=== PATIENT | female | born 2000 | race Caucasian/White ===

== ENCOUNTER 2024-04-15 17:30 | Emergency (ER) | payer BC, SELFPAY ==
[2024-04-15 18:28] VITALS: BP 143/71; PULSE 77; RESP 18; TEMP 36.8; O2SAT 99; BMI 34.6
--- NOTE | 2024-04-15 18:29 | ED_ITS ---
HPI - Headache General Chief Complaint: General Medical Stated Complaint: vomiting, can't keep anything down Related Data Allergies Allergy/AdvReac Type Severity Reaction Status Date / Time amoxicillin Allergy Hives Verified 04/15/24 18:30 shellfish derived [shellfish] Allergy Anaphylaxis Verified 04/15/24 18:30 [facility] Social History Social History Advance Directives: No Advance Directives Information Provided: No Do you have a plan to hurt others: No Plan Physical Exam 2 Vital Signs: Vital Signs: Last Vital Signs Temp 98.2 F 04/15/24 18:28 Pulse 77 04/15/24 18:28 Resp 18 04/15/24 18:28 BP 143/71 H 04/15/24 18:28 Pulse Ox 99 04/15/24 18:28 O2 Del Method Room Air 04/15/24 18:28 BMI result Body Mass Index 34.6 Course Course Course Narrative: This is an RME: Additional HPI, ROS, PE not included below will be deferred to primary provider. RME assessment and note performed by: Tawny Chau PA-C This is a 64-jeps-afc-female who presents to the ER with complaints of headache, nausea, vomiting since this am. Went to an urgent care and was given Zofran 8 mg. Plan: Labs, UA, further ER eval needed Reevaluation(s) Reevaluation #1: Patient left without completing treatment. Medical Decision Making Lab Data 04/15/24 19:09 04/15/24 19:09 Labs: Lab Results 04/15/24 Range/Units 19:09 WBC 7.7 (4.8-10.8) X10*3/uL RBC 4.55 (4.20-5.50) X10*6/uL Hgb 13.6 (12.0-16.0) g/dl Hct 40.5 (37.0-47.0) % MCV 89.0 (80.0-98.0) fL MCH 29.9 (27.0-33.0) pg MCHC 33.6 (31.0-35.0) g/dl RDW 11.9 (11.0-16.0) % Plt Count 303 (160-400) X10*3/uL MPV 8.6 L (9.4-12.3) fL Immature Gran % (Auto) 0.3 (0.0-0.4) % Neut % (Auto) 78.8 H (45-73) % Lymph % (Auto) 15.9 L (20-40) % [place] % (Auto) 4.3 (2-11) % Eos % (Auto) 0.3 (0-4) % Baso % (Auto) 0.4 (0-2) % Lymph # (Auto) 1.2 (1.2-4.9) X10*3/uL [place] # (Auto) 0.3 (0.1-1.2) X10*3/uL Eos # (Auto) 0.0 (0.0-0.4) X10*3/uL Baso # (Auto) 0.0 (0.0-0.2) X10*3/uL Abs Immat Gran (auto) 0.02 (0.00-0.03) X10*3/uL Absolute Neuts (auto) 6.1 (2.0-8.3) x10*3/uL Absolute Nucleated RBC 0.000 (0.0-0.012) X10*3/uL Nucleated RBC % (auto) 0.0 (0.0-0.2) /100WBC Sodium 139 (135-145) mmol/L Potassium 3.9 (3.3-5.1) mmol/L Chloride 104 (96-108) mmol/L Carbon Dioxide 24 (22-29) mmol/L Anion Gap 15 (12-20) BUN 9 (9-16) mg/dL Creatinine 0.60 (0.5-1.4) mg/dL Estim Creat Clear Calc 151.2 Estimated GFR > 60 Random Glucose 94 (60-115) mg/dL Calcium 8.9 (8.4-10.2) mg/dL Magnesium 2.1 (1.6-2.6) mg/dL Total Bilirubin 0.4 (0.0-1.0) mg/dL Direct Bilirubin 0.1 (0.0-0.5) mg/dL AST 32 H (5-31) U/L ALT 20 (0-31) U/L Alkaline Phosphatase 52 (39-117) U/L Total Protein 8.1 H (6.5-8.0) g/dL Albumin 4.6 (3.5-5.0) g/dL Lipase 17 (8-78) U/L Beta HCG, Quant < 2 mIU/mL Influenza Type A (PCR) NEGATIVE (Negative) Influenza Type B (PCR) NEGATIVE (Negative) RSV RNA Qual (PCR) NEGATIVE (Negative) SARS-CoV-2 RNA (RT-PCR) NEGATIVE (Negative) Discharge Plan Discharge Clinical Impression: Vomiting Patient Disposition: Left W/O Completing Treatment Discharge Date/Time: 04/16/24 00:29
[2024-04-15 19:16] LABS: MANUAL DIFF FLAG NO
[2024-04-15 19:17] LABS: Basophils Percent Auto 0.4 % (0-2); Eosinophils Percent Auto 0.3 % (0-4); Hematocrit 40.5 % (37.0-47.0); Hemoglobin 13.6 g/dl (12.0-16.0); Imm Gran Abs Auto 0.02 X10*3/uL (0.00-0.03); Imm Gran Pct Auto 0.3 % (0.0-0.4); Lymphocytes Absolute Auto 1.2 X10*3/uL (1.2-4.9); Lymphocytes Percent Auto 15.9 % (20-40); Mean Corpuscular HGB Conc 33.6 g/dl (31.0-35.0); Mean Corpuscular Hemoglobin 29.9 pg (27.0-33.0); Mean Platelet Volume 8.6 fL (9.4-12.3); Monocytes Absolute Auto 0.3 X10*3/uL (0.1-1.2); Monocytes Percent Auto 4.3 % (2-11); Neutrophils Absolute Auto 6.1 x10*3/uL (2.0-8.3); Neutrophils Percent Auto 78.8 % (45-73); Platelet Count 303 X10*3/uL (160-400); Red Blood Count 4.55 X10*6/uL (4.20-5.50); Red Cell Distribution Width 11.9 % (11.0-16.0); White Blood Count 7.7 X10*3/uL (4.8-10.8)
[2024-04-15 19:44] LABS: Alanine Aminotransferase 20 U/L (0-31); Albumin Level 4.6 g/dL (3.5-5.0); Alkaline Phosphatase 52 U/L (39-117); Anion Gap 15 (12-20); Aspartate Amino Transferase 32 U/L (5-31); Bilirubin Direct 0.1 mg/dL (0.0-0.5); Bilirubin Total 0.4 mg/dL (0.0-1.0); Blood Urea Nitrogen 9 mg/dL (9-16); Calcium 8.9 mg/dL (8.4-10.2); Carbon Dioxide 24 mmol/L (22-29); Chloride 104 mmol/L (96-108); Creatinine Clr Calc Pharmacy 151.2; Estimated Glomerular Filt Rate > 60; Glucose Random 94 mg/dL (60-115); Lipase 17 U/L (8-78); Magnesium 2.1 mg/dL (1.6-2.6); Potassium 3.9 mmol/L (3.3-5.1); Sodium 139 mmol/L (135-145); Total Protein 8.1 g/dL (6.5-8.0)
[2024-04-15 19:46] LABS: HCG Quantitative < 2 mIU/mL
[2024-04-15 20:01] LABS: Influenza A PCR NEGATIVE (Negative); Influenza B PCR NEGATIVE (Negative); Resp Syncy Virus RNA Qual PCR NEGATIVE (Negative); SARS COV2 PCR INHOUSE NEGATIVE (Negative)
--- NOTE | 2024-04-15 23:58 | PC.NURSE ---
Pt called in WR with no answer
== END 2024-04-16 00:29 | disposition left against medical advice (07) ==
LOC: HO.ED 04-16 00:17
PROVIDERS: Physician Assistant Medical; Emergency Provider Emergency Medicine
DX: R11.2 Nausea with vomiting, unspecified (principal); R51.9 Headache, unspecified; R10.2 Pelvic and perineal pain; Z03.818 Encounter for observation for suspected exposure to other biological agents ruled out; Z79.899 Other long term (current) drug therapy
CPT/HCPCS: 0241U; 36415; 80048; 80076; 83690; 83735; 84702; 85025; 99281; 99283

== ENCOUNTER 2024-11-20 11:02 | Outpatient (AMB) | payer OTHER, SELFPAY ==
[2024-11-20 11:07] VITALS: BP 140/74; PULSE 98; RESP 18; TEMP 36.2; O2SAT 98; BMI 39.1
--- NOTE | 2024-11-20 11:07 | A.OFFPC_ITS ---
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 Accompanied by: Self / Same As Patient Allergies amoxicillin Allergy (Verified 11/20/24 11:29) Hives shellfish derived (shellfish) Allergy (Verified 11/20/24 11:29) Anaphylaxis Medication List - Last Reconciled 11/20/24 by LYNETTE Ngo No Known Home Meds Tobacco use date assessed: 11/20/24 Dental Screening Dental Screen Date: 11/20/24 Did you have a dental visit in the last 12 months?: Yes Did you have a dental problem in the last 6 months where you did not have access to dental care?: No Was dental information given to patient?: Patient has dentist HPI PYTHON DEVELOPER Establish Care, reschedule HPI Details [facility] Last visit: Last January PE: about a year Specialist: [facility]YN: Past medical history: Asthma, adhd, anxiety, ocd that past, , due in January, Medications: Family HX: mother asthma, mother endometriosis, aunt pcos, sister thyroid issues, Problem: The patient is a 23-year-old female presenting to [facility]. Patient reports that she is currently in his due to give in January. She has a history of asthma, managed with an inhaler, and reports no recent exacerbations. Her ADHD was previously managed with Concerta, but she now uses coping strategies instead of medication. The patient has anxiety, previously managed with situational Ativan, which she no longer uses. She is , due February 16, and follows a holistic care plan with her market superintendent, including glucose testing. Her past medical history includes resolved increased prolactin levels that resolved after discontinuing Concerta. She was worried that this could have affected her fertility She recently had COVID-19, with resolved ear erythema noted during an urgent care visit. ON LICENSE OF [facility] Medical History (Updated 11/20/24 @ 23:40 by LYNETTE Ngo) Anxiety OCD (obsessive compulsive disorder) ADHD Asthma Family History (Updated 11/20/24 @ 23:46 by LYNETTE Ngo) Mother Endometriosis Sister Thyroid disease Maternal Aunt Endometriosis Other Anxiety PCOS (polycystic ovarian syndrome) Social History Household Members: Spouse Housing: House Alcohol intake: never Patient Tobacco Use Status: Never used Tobacco e-Cigarette/Vaping Use: Never Used service: No Current occupational status: employed Current occupation: RESIDENTIAL BUILDER Current occupational exposures/hazards: No Cognitive needs: No Hearing needs: No Vision needs: Yes Questionnaire PHQ-9 Over the last 2 weeks, how often have you been bothered by any of the following problems? 1. Little interest or pleasure in doing things: not at all 2. Feeling down, depressed, or hopeless: not at all 3. Trouble falling or staying asleep, or sleeping too much: not at all 4. Feeling tired or having little energy: not at all 5. Poor appetite or overeating: not at all 6. Feeling bad about yourself - or that you are a failure or have let yourself or your family down: not at all 7. Trouble concentrating on things, such as reading the newspaper or watching television: not at all 8. Moving or speaking so slowly that other people could have noticed. Or the opposite - being so fidgety or restless that you have been moving around a lot more than usual: not at all 9. Thoughts that you would be better off or of hurting yourself in some way: not at all Total score: 0 Source: Developed by Drs. Duglas Verdugo, Rosalie Way, Aramis Rubio and colleagues, with an educational mike from [employer]. Thrive Questionnaire Date Thrive assessed: 11/20/24 I am a: Patient What is your living situation today?: I have a steady place to live Within the past 12 months, did the food you bought not last and you didn't have the money to get more?: Never true Within the past 12 months, did you worry whether your food would run out before you got money to buy more?: Never true Do you have trouble paying for medicines?: No Do you have trouble getting transportation to medical appointments?: No Do you have trouble paying your heating and electricity bill?: No Do you have trouble taking care of your child, family member or friend?: No Do you have trouble with day-to-day activities such as bathing, preparing meals, shopping, managing finances, etc.?: No Are you currently unemployed and looking for a job?: No Are you interested in more education?: No Please select the resources that you would like help with: None Currently or been in a relationship where the following occur: I choose not to answer THRIVE Score: 0 AUDIT C Alcohol Use Questionnaire (AUDIT-C) 1. How often do you have a drink containing alcohol?: Never Total Score: 0 ROBY-7 AMB Questionnaire ROBY-7 Date ROBY - 7 assessed: 11/20/24 Feeling nervous, anxious, or on edge: 0 = Not at all Not being able to stop or control worryin = Not at all Worrying too much about different things: 0 = Not at all Trouble relaxin = Not at all Being so restless that it is hard to sit still: 0 = Not at all Becoming easily annoyed or irritable: 0 = Not at all Feeling afraid as if something awful might happen: 0 = Not at all Total ROBY-7 score (0-4 normal; 5-9 mild; 10-14 moderate; 15-21 severe): 0 Source: Developed by Drs. Duglas Verdugo, Rosalie Way, Aramis Rubio and colleagues, with an educational mike from [employer]. Review of Systems Const Denies headache(s) Eyes Denies loss of vision ENT Denies vertigo, Denies dizziness, Denies headache(s) and Denies sore throat Card Denies chest pain, Denies leg edema and Denies lightheadedness Resp Denies cough, Denies hemoptysis and Denies wheezing GI Denies abdominal pain, Denies melena, Denies constipation, Denies diarrhea and Denies vomiting Denies urinary frequency, Denies dysuria and Denies urinary urgency Musc Denies arthralgias, Denies joint swelling, Denies numbness and Denies tingling Neuro Denies Abnormal speech present, Denies behavioral changes, Denies vertigo, Denies dizziness, Denies headache(s), Denies loss of vision, Denies memory loss, Denies numbness and Denies tingling Psych Reports anxiety, Denies behavioral changes, Reports depression, Denies memory loss and Denies panic attacks Anthony/Lymph Denies easy bleeding and Denies easy bruising Aller/Immun Denies wheezing Physical exam (Primary Care) Vital Signs: Last Vital Signs Temp 97.1 F 11/20/24 11:07 Pulse 98 11/20/24 11:07 Resp 18 11/20/24 11:07 BP 140/74 H 11/20/24 11:07 Pulse Ox 98 11/20/24 11:07 Oxygen Delivery Method Room Air 11/20/24 11:07 BMI result Body Mass Index 39.1 Tobacco/Smoking Status: Tobacco use Status Tobacco use date assessed 11/20/24 11/20/24 11:17 Patient Tobacco Use Status Never used Tobacco 11/20/24 11:17 e-Cigarette/Vaping Use Never Used 11/20/24 11:17 PHQ-9: PHQ-9 Score PHQ-9: Total score 0 11/20/24 11:30 Thrive Assessment: Date of Thrive Assessment Date Thrive assessed 11/20/24 11/20/24 11:17 Currently or been in a relationship where the following occur: I choose not to answer Const General: healthy appearing, no acute distress, alert and awake Nutritional Appearance: well nourished Orientation/consciousness: oriented to person, oriented to place and oriented to time HENMT Ears: TM's normal bilaterally General nose exam: Normal nasal mucous membranes and turbinates present Eyes Conjunctivae: conjunctivae normal Sclerae: sclerae normal Pupils: Equal, round and reactive pupils present Neck Neck: Yes no lymphadenopathy and Yes no JVD Thyroid: Thyroid normal Carotids: no bruits Resp Effort & Inspection: normal respiratory effort and not tachypneic Auscultation: no crackles, no rales, no rhonchi and no wheezes Cardio Rate: regular rate Rhythm: regular rhythm Heart sounds: no murmurs and normal S1 and S2 GI Inspection: Yes other ( abdomen) Palpation (GI): Soft to palpation, nontender, no hepatomegaly and no splenomegaly Auscultation: normal bowel sounds General: Yes no CVA tenderness Back/Spine/Pelvis Back: no CVA tenderness Skin General skin exam: no rashes or lesions noted and dry skin Neuro General: oriented to person, oriented to place and oriented to time Cranial nerves: Yes Equal, round and reactive pupils present Speech: No Abnormal speech present Gait exam (Neuro): Normal gait present Motor exam (neuro): no tremor noted Extrem Right upper extremity: full ROM Left upper extremity: full ROM Right lower extremity: full ROM; no edema Left lower extremity: full ROM; no edema Psych Mental Status: mental status grossly normal Speech and movement: Normal speech and movement present Affect: normal affect Attitude: cooperative Thought process: Normal thought process present Coding Level of Care Code New Pt Level 3 (23867) Diagnoses Anxiety F41.9 17 weeks gestation of Z3A.17 Weeks of gestation: 17 weeks Mild intermittent asthma with acute exacerbation J45.21 Asthma persistence: intermittent Asthma complication type: with acute exacerbation Asthma severity: mild Attention deficit hyperactivity disorder (ADHD), unspecified ADHD type F90.9 Attention deficit-hyperactivity disorder type: unspecified Time Spent (min) 34 Assessment & Plan Assessment & Plan (1) Anxiety: Code(s): F41.9 - Anxiety disorder, unspecified Category: Medical Plan: Encouraged CBT Reports that she learned effective strategies that have been helping and she is no longer on any medications We will continue to monitor (2) : Code(s): Z34.90 - Encounter for supervision of normal , unspecified, unspecified trimester Category: Medical Qualifiers: Weeks of gestation: 17 weeks Qualified Code(s): Z3A.17 - 17 weeks gestation of Plan: The patient is in his due in January. She is under the care of [facility]. She is currently on vitamins and she has a upcoming glucose tolerance test. (3) Asthma: Code(s): J45.909 - Unspecified asthma, uncomplicated Category: Medical Qualifiers: Asthma persistence: intermittent Asthma complication type: with acute exacerbation Asthma severity: mild Qualified Code(s): J45.21 - Mild intermittent asthma with (acute) exacerbation Plan: Lifestyle modifications like smoking cessation. Wear a mask when around irritants, fumes, or particulate matter (e.g., painting, lawn mowing). Increase humidification at home, especially in the winter. Annual flu shots and the pneumonia shot can mitigate exacerbation. Increase fluids if not contraindicated because of heart failure. (4) ADHD: Code(s): F90.9 - Attention-deficit hyperactivity disorder, unspecified type Category: Medical Qualifiers: Attention deficit-hyperactivity disorder type: unspecified Qualified Code(s): F90.9 - Attention-deficit hyperactivity disorder, unspecified type Plan: Reports that this was more bothersome while she was in school. 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 Plan Plan Patient was informed and verbally consented to the use of an ambient scribe for clinic note documentation during this visit. 1. Asthma The patient's asthma is managed with an inhaler, with no recent exacerbations reported. No changes in management were discussed. 2. Attention Deficit Hyperactivity Disorder (Adhd) The patient manages her ADHD symptoms through coping strategies developed over time, without medication. No further interventions were discussed. 3. Anxiety The patient has a history of anxiety, previously managed with situational Ativan, which she no longer uses. No changes in management were discussed. 4. The patient is , due February 16, and follows a holistic care plan with her market superintendent, including glucose testing. No additional interventions were discussed. Orders: Orders Complete Blood Count Auto Diff 4 Months Z00.00 - Encounter for general adult medical examination without abnormal findings Vitamin D 25-OH Total 4 Months Z00.00 - Encounter for general adult medical examination without abnormal findings Comprehensive [place]. Panel Fast 4 Months Z00.00 - Encounter for general adult medical examination without abnormal findings Lipid Panel 4 Months Z00.00 - Encounter for general adult medical examination without abnormal findings UA CC w/rflx Micro + Cult 4 Months Z00.00 - Encounter for general adult medical examination without abnormal findings TSH reflex Free T4 4 Months Z00.00 - Encounter for general adult medical examination without abnormal findings Patient Instructions: Patient to follow up in 4 months for annual physical
--- OUTSIDE RECORDS SUMMARY | 2024-11-20 11:59 | XMS_ITS | Encounter Summary ---
Author Organization [facility] Address [address] [place] [address] Phone Care Team Providers Care Inspector Technician Name Role Phone Liang Rodríguez NP Unavailable Pamela Avila MD Unavailable [phone] Tony Loomis MD Unavailable [phone] Duglas Marino MD Unavailable [phone] Reason for Visit * Reason Onset Date Comments has new PCP 11/15/2024 Encounter Details Date Type Department Care Team (Late st Contact Info) Description 11/15/2024 Telephone [facility] [address] [place] [address] Pamela Avila MD [address] [place] [address] [email or web address] has new PCP Social History Tobacco Use Types Packs/Day Years Used Date Smoking Tobacco: Never Smokeless Tobacco: Never Alcohol Use Standard Drinks/Week Comments Yes 0 (1 standard drink = 0.6 oz pur e alcohol) occasional Education Answer Date Recorded Are you interested in more education? Not on baudilio e 07/22/2022 Are you concerned about learning? Not on file 07/22/2022 No 07/22/2022 No 07/22/2022 Digital Access Answer Date Recorded No 08/19/2022 No 08/19/2022 Reliable internet access at home? Not on file 08/19/2022 Device with a working camera? Not on file Intimate Partner Violence Answer Date R ecorded Denied Basic Needs Not on file 12/26/2022 In the past 12 months have y ou been in a relationship with a person who hurts, threatens, or tries to control you? No 12/26/2022 Worried food would run out Not on file 12/26 In the past 12 months have y ou been in a relationship with a person who hurts, threatens, or tries to control you? No 12/26/2022 Comments No Sex and Gender Information Value Date Recorded Sex Assigned at Female 11/15/2022 10:36 AM EDT Legal Sex Female 4:13 PM EST Gender Identity Female 11/15/2022 10:36 AM EDT Sexual Orientation Straight 11/15/2022 10 :36 AM EDT documented as of this encounter Progress Notes * Mayela Gonzalez - 11/15/2024 9:40 AM EDT Pt called. She has new PCP in [facility] and will no longer be a patient of Dr. Campo. documented in this encounter Plan of Treatment Upcoming Encounters Date Type Department Care Team (Late st Contact Info) Description 11/22/2024 9:40 AM EDT Appointment [facility] [place], OB Ultrasound [address] [place] [address] Shani Terry, [address] [address] [email or web address] documented as of this encounter Visit Diagnoses Not on filedocumented in this encounter Additional Health Concerns Assessment Noted Time PHQ-2 Depression Total Score: 0 07/07/19 24 9:53 AM EDT documented as of this encounter Care Teams Inspector Technician Relationship Specialty Start Date End Date Liang Rodríguez NP [address] [place] [address] Historical LMR Provider 06/07/18 Pamela Avila MD [address] [place] [address]. [address] [place] [address] [email or web address] Historical LMR Provider 06/07/18 Tony Loomis MD [address] [place] [id number] [email or web address] Historical LMR Provider 06/07/18 Duglas Marino MD [address] [place] [id number] Historical LMR Provider 06/07/18 documented as of this encounter Additional Source Comments The information contained in this document represents components of the legal health record. It is not the complete legal health record.[facility]
--- OUTSIDE RECORDS SUMMARY | 2024-11-20 11:59 | XMS_ITS | Clinical Summary ---
Author Organization [facility] Address [address] [place] [id number] Phone Care Team Providers Care Behavioral Assistant Name Role Phone Liang Rodríguez NP Unavailable Pamela Avila MD Unavailable [phone] Tony Loomis MD Unavailable [phone] Duglas Marino MD Unavailable [phone] Allergies Active Allergy Reactions Criticality Noted Date Comments Amoxicillin Low 08/05/2016 Clams High 01/20/2017 Scallops High 01/20/2017 Shellfish Containing Products High 2016 Medications EPINEPHrine 0.3 mg/0.3 mL auto-injector INJECT 0.3 ML (0.3 MG TOTAL) INTRAMUSCULARLY ONCE NEEDED FOR ANAPHYLAXIS 2 each 1 01/14/20 23 Active triamcinolone acetonide 0.025 % ointment APPLY TOPICALLY 2 (TWO) TIMES A DAY. TO DERMATITIS 60 g 1 05/25/19 24 Active albuterol 90 mcg/actuation inhalerIndication s:Allergic rhinitis due to pollen Inhale 2 puffs into the lungs every 4 (four) hours as needed. With SPACER always 54 g 06/28/19 24 Active cloNIDine HCL (CATAPRES) 0.1 MG tablet TAKE 1 TABLET (0.1 MG TOTAL) BY MOUTH TWICE A DAY NEEDED 180 tablet 07/31/19 24 Active methylphenidate (CONCERTA) 27 MG ER tabletIndications :Attention-defici t hyperactivity disorder, predominantly inattentive type Take 1 tablet (27 mg total) by mouth every morning. 90 tablet 03/22/20 24 Active Active Problems Problem Noted Date Diagnosed Date Screening for tuberculosis 07/07/2023 Assessment & Plan (07/08/2023 10:17 AM EDT): PPD planted today to fulfill requirements for HOLISTIC PULSER course. Will have this read at a local urgent care or at work since pt. Living in [facility]. Knows to have PPD read in 48-72 hrs. Should send results to our office as well to document. Screen for STD (sexually transmitted disease) Assessment & Plan (07/24/2021 7:07 AM EDT): Refer Encounter for general adult medical examination without abnormal findings. Assessment & Plan (08/06/2020 11:52 AM EDT): HIV, Hep C ordered per care gaps, GC/Chlam testing done on pap specimen Encounter for gynecological examination without abnormal finding 08/06/2020 Assessment & Plan (08/06/2020 11:51 AM EDT): First pap done today Encounter for preventive care 11/13/2017 Assessment & Plan (07/08/2023 10:18 AM EDT): 22 yo F presenting for annual PE Reviewed healthy habits: regular meals, good variety, good hydration, regular exercise, sleep habits, hand hygeine, healthy relationships, safe sex, safe driving/seatbelts, substance use SBE reviewed Reviewed recommendation for COVID booster - should update before HOLISTIC PULSER course. Pt. States it is required and she will be getting this at a local pharmacy Pap due this year - will do at scheduled visit in December Follow up for PE/med check 01/01/24 Assessment & Plan (12/26/2022 2:02 PM EDT): 22 yo F presenting for annual PE Reviewed healthy habits: regular meals, good variety, good hydration, regular exercise, sleep habits, hand hygeine, healthy relationships, safe sex, safe driving/seatbelts, substance use SBE reviewed Flu vaccine given today, encouraged covid booster this fall, deferred PCV 20 Declined Chlamydia screening Pap due 2023 Follow up 1 year for annual PE, 6 months for med check Assessment & Plan (07/24/2021 2:34 PM EDT): Pap screening: Her Pap is due in 2023. Ophthalmology screening: She wears glasses and contacts. She sees an eye doctor regularly. Continue regular eye checkups. Dental screening: She does not follow-up with the dentist regularly. Recommended regular dental follow-up. STD screening: Due. Ordered STD screening for gonorrhea, Chlamydia, and Trichomonas vaginalis, pt agrees. Diet and Exercise : She is working on weight loss and has lost 8 lb. She is eating healthy. She drinks Celsius in the morning with Lucila bar. She has a sandwich for lunch. She has pasta/rice/ salad for dinner. If she is hungry in the middle of day she will have a lady boss lean shake. She is trying to drink an adequate amount of water. She usually has 1-2 water bottles/day. She is very picky with her water. States she cannot drink tap water. She has brought a water pitcher at home. She exercises at home for an hour daily. She does a HIIT workout by watching a video on YouTube ([email or web address]). She plans to increase the intensity of her workout and also plans to go back to the gym. She also remains active at work. Continue healthy diet and regular physical activity. Recreational activities: She likes to go biking, and hiking. Immunization: Due for pneumococcal vaccine. She used to get pneumonia every year in middle school and high school. She did not get pneumonia last year. She declined the pneumococcal vaccine today. Sleep health: She sleeps well. Elimination: She denies any issues with constipation or diarrhea. PMFSH reviewed. 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 She is waiting to take her HOLISTIC PULSER test. She has alcohol 3 times/week after work. She uses edibles occasionally once a month. She denies vaping or smoking cigarettes. She has been in a relationship with her boyfriend for a year. Has a safe relationship. She is planning to get . Assessment & Plan (08/06/2020 11:51 AM EDT): 19 yo F presents for annual PE Reviewed healthy habits: regular meals, good variety, good hydration, regular exercise, sleep habits, hand hygeine, healthy relationships, safe sex, safe driving/seatbelts, substance use SBE reviewed Pneumovax given today Bloodwork ordered for Fasting lipids, HIV, Hep C, TSH, testosterone, prolactin Pap done today with GC/Chlam testing Follow up 1 year for annual PE Assessment & Plan (02/08/2019 4:33 PM EST): 18 yo F in for annual PE Reviewed healthy habits: regular meals, good variety, good hydration, regular exercise, sleep habits, hand hygeine, healthy relationships, safe sex, safe driving/seatbelts, substance use SBE reviewed Flu shot given today Urine obtained for GC/Chlam Follow up 1 year for annual PE Eczema 11/13/2017 Assessment & Plan (06/11/2020 11:32 AM EDT): Requesting refill of trimacinolone today as this is helpful with winter eczema flares - rx sent. Contraception management 02/20/2017 Assessment & Plan (07/08/2023 10:18 AM EDT): Doing well on current OCP. Periods regular and manageable. No condom use. . Assessment & Plan (12/26/2022 2:01 PM EDT): Periods well managed with current OCP, does get back cramps, but manages well with ibuprofen Assessment & Plan (11/15/2022 1:30 PM EDT): Doing well on current OCP - taking consistently with no side effects in September! Assessment & Plan (07/24/2021 7:08 AM EDT): Currently, on norethindrone- ethinyl estradiol control pill. She has no concerns and has regular periods. Continue current medication. Assessment & Plan (02/10/2021 10:05 AM EST): Currently, on control pills, and having regular periods. Recommended continuing current management. Assessment & Plan (02/08/2019 4:32 PM EST): Pt. Interested in IUD - reviewed good to consider as pt. Has hx of migraines ? Aura and has been on combined OCP Pt. To go up to W to schedule consult after this visit Allergic rhinitis due to pollen 11/22/2016 Overview (11/21/2023): 11/22/23: OV w KL, I removed tree pollen, insects, cat dander and mite extract from the Allergy list in this chart which is meant for noting ER & hospital medical care relevant allergies - other allergy issues are to be noted here in the Problem List as this is here & I am also noting the cat, mite, insect in the Overview of this problem for clarification. Assessment & Plan (11/21/2023 8:39 PM EDT): I removed tree pollen, insects, cat dander and mite extract from the Allergy list in this chart which is meant for noting ER & hospital medical care relevant allergies - other allergy issues are to be noted here in the Problem List as this is here & I am also noting the cat, mite, insect in the Overview of this problem for clarification. Assessment & Plan (10/01/2018 2:16 PM EDT): Skin testing demonstrates sensitivity to dust mite, cat, and pollen. Dust mite environmental controls are in place. She uses loratadine as needed. I have previously demonstrated the correct technique for Flonase. 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 Skin testing to crustaceans and mollusks demonstrate positive responses to shrimp, crab, lobster, clam, and scallop. The patient does carry auto injectable epinephrine. There have been no recent pertinent exposures. Mild intermittent asthma without complication Assessment & Plan (07/07/2023 2:34 PM EDT): States rarely needing inhaler, just using albuterol as needed Assessment & Plan (12/26/2022 2:00 PM EDT): Asthma well managed, has active albuterol inhaler, no concerns at this time. PCV 23 in 2020, will defer PCV 20 for now Assessment & Plan (11/15/2022 1:27 PM EDT): States asthma well managed. Is noticing symptoms more at night or with temp changes, but states not needing albuterol daily. Will check peak flows at PE and consider maintenance med if indicated. Assessment & Plan (07/24/2021 7:05 AM EDT): Her symptoms are well managed at this time. She has an albuterol to use as needed. Well managed. Continue current management. Assessment & Plan (02/10/2021 10:04 AM EST): Has a h/o asthma. States using the albuterol inhaler once or twice a week. Recommended continuing current management. Advised to notify if she is using the inhaler more frequently. Assessment & Plan (10/01/2018 2:17 PM EDT): Spirometry today was normal. Patient is using pro-air 2-3 times a week. The patient knows that if her Pro Air use increases, we will likely need to start maintenance medications. Situational anxiety 11/11/2016 Assessment & Plan (11/22/2023 1:21 PM EDT): Ok to use clonidine 0.1mg am and pm as often seen. Assessment & Plan (07/08/2023 10:15 AM EDT): Has struggled with anxiety in the past, currently not on medication. States anxiety is off and on, either there or no problem at all. is great at helping her manage her anxiety and does have good coping skills. Does not want to go back on daily med - did review benefit of this to help prevent spikes in panic altogether. Reviewed options for safe alternatives for prn meds Rx clonidine 0.1mg PO BID prn anxiety/panic. Reviewed side effects If using more than a few times weekly should consider daily med Pt. To message with any concerns. Did encourage follow up med check in 2-3 months for recheck Assessment & Plan (07/24/2021 7:05 AM EDT): She has h/o anxiety and situational depression. Today, she reports having some stress with work and school but feels like she is managing her mental health well for most part. Her ROBY 2 score is 1 and PHQ 2 score is 0. Well managed. Continue current management. Advised to let us know if symptoms are bothersome. Assessment & Plan (02/10/2021 10:05 AM EST): Patient having anxiety. Currently, on methylphenidate HCL 27 mg, and Ritalin 5 mg as needed. States not taking Luvox 50 mg, as she had side effects with it. However, she is feeling better with her anxiety and OCD. Has normal sleep and appetite. Recommended continuing current management. Assessment & Plan (08/06/2020 11:40 AM EDT): Pt. Currently off luvox and doing well, no concerns for anxiety/depression at this time. No current therapsit. Assessment & Plan (06/11/2020 11:31 AM EDT): 19 yo F presents for genesite testing Pt. With hx of Anxiety/OCD tendencies, failed on sertraline with new onset SI. Switched to luvox and has been doing well on 50mg daily - prescribed by Dr. Isaac at [facility] Reviewed if doing well on meds no need to change even if contradicted by genesite results. Reviewed financial obligations possible for testing - states mom and dad aware and feel this would be good for pt. To have moving forward. Cheek swab performed - will contact pt. With results and mail a copy home to her as she has meds prescribed by psychiatry - will want to share results with her psychiatrist as well PE scheduled in June. Assessment & Plan (09/10/2019 9:26 AM EDT): 18 yo F presents for telemed visit to go over requirements for nursing school UTD with vaccines, does need 2 step PPD, school prefers this over quantiferon gold test. Does need to go for Hep B titer - knows to go anytime - orders in the system. Reviewed pre-registration requirement. Doing well with current dose of luvox - denies concerns for anxiety at this time. Sees Dr. Isaac at [facility] for meds. PE due in January - scheduled Assessment & Plan (02/08/2019 4:31 PM EST): Pt. Doing very well on fluvoxamine 50mg - seeing psychiatrist Dr. Isaac at [facility] for Rx, also seeing therapist there as well No concerns for disturbing thoughts at this time. Assessment & Plan (11/19/2018 11:39 AM EDT): 17 yo F in with her mom and sister. Started sertraline on 10/29/18 for anxiety and ruminating behaviors/OCD type behavior. Over the past week while taking med started experiencing increasing depressive thoughts and engaged in superficial cutting. Did not feel safe to be alone, had family with her at all times. After discussion with [facility] safety eval, this office and family stopped med over weekend with depressive/harmful thoughts resolving, now feeling anxious again. Long discussion with pt. And family regarding this reaction - not normal at all, good she stopped med. Going forward pt. Still interested in trying medication but is also very open to therapy - is on urgent list at [facility] after emergency eval, waiting to hear back. Discussed trying fluvoxamine as this is very helpful for OCD type symptoms with anxiety, however is an SSRI so is in same class as sertraline which caused increased depression. Can also try a different class like SNRI - long discussion regarding this with pros/cons. Did discuss SE of each med. Reviewed option for Genesite and cost. Declined at this time but if still having issues with meds after next trial should do this - pt. And family agree. Pt. Ultimately decided to try Fluvoxamine at this time - will start very low with 50mg PO QD - reviewed may increase at some point to BID if behaviors not adequately controlled Pt. To call at any time with any concerns for thoughts/side effects/behaviors Go to ER with any suicidal thoughts Follow up 1 month for med check 45 minutes spent with pt. With > 50% of time spent on education and counseling Assessment & Plan (10/29/2018 11:33 AM EDT): 17 yo F in with concern for 1-2 months of increasing anxiety, feels she ruminates over tasks, always worried, is affecting sleep and her appetite. Interested in medication at this time but open to therapy in the future if needed Is currently on stimulants for ADHD - does not feel these are contributing to her anxiety Rx sertraline 50mg PO QD - pt. To take 25mg (half tab) daily for 4-5 days then increase dose to 50mg, encouraged to take at bedtime Reviewed side effects, 4-6 weeks for full therapeutic effect Follow up 4 weeks for med check, call any time with questions/concerns Over 25 minutes spent face to face with the patient today; over 20 minutes in counseling on above and below issues. Attention-deficit hyperactiv ity disorder, predominantly inattentive type 11/11/2016 Assessment & Plan (11/22/2023 1:18 PM EDT): Out of the Concerta, did not take yesterday or today. Mainly work days. Prev as kid was on 36mg Concerta and short acting ritalin after school. Assessment & Plan (07/08/2023 10:16 AM EDT): Well managed with concerta 27mg daily - taking only on work days, may start taking more with HOLISTIC PULSER course. [facility] accessed, last filled 06/28/23 Utox UTD last done 12/26/22 Signed controlled substance contract 07/23/20 in media tab Assessment & Plan (12/26/2022 2:01 PM EDT): Well managed with concerta 27mg as needed, taking just for work days and big gatherings. Does need refill today. Utox due - urine obtained Assessment & Plan (11/15/2022 1:29 PM EDT): 21 yo F presenting for follow up med check - has been 6 months since last med check, overdue for PE - waiting to find out November work schedule then will schedule PE States recently started taking concerta again - states she's finding it very important especially for work - helps her remember everything, be more vigilant. Also utilizes when she is out with a lot of people - helps decrease anxiety for her. Taking as needed currently. Last filled 10/10/22 per [facility] - will refill today Denies concerning side effects Is aware Utox due and will do this with PE - she will call to schedule ARTHUR Did discontinue 5mg ritalin, does not feel she needs this currently. We can always revisit this in the future if needed. Assessment & Plan (05/27/2022 1:56 PM EST): 21 yo F presenting for follow up med check Doing well on concerta 27mg - states she feels like this is the perfect dose. She is able to organize her thoughts with it, but also can have coffee in the AM after taking it without feeling jittery. No issues with diminished appetite, sleeping generally well. Recently moved and got a new job - will be starting that soon. Seems like life is going really well for pt. Currently and she seems really happy Rx sent today for refill - mom to picker and sorter load and unload and bring out to pt. When she comes to help her move this weekend, next rx will fill close to her new home in [place], [place] Has not been using ritalin Follow up for PE 08/01/22 Assessment & Plan (07/24/2021 7:05 AM EDT): Currently, on Concerta 27 mg daily and Ritalin 5 mg. She uses edibles occasionally once a month. Last used it a month ago. Pt did Urine Drug Screen today. I did check her [facility] and she last filled her Concerta 27 mg on 02/05/21 and Ritalin 5 mg on 11/15/2019. Continue current management. Refill of Concerta 27 mg provided. Assessment & Plan (02/10/2021 10:05 AM EST): Patient has a h/o ADHD. Assessment & Plan (08/06/2020 11:50 AM EDT): Pt. With hx of neuropsych testing currently has rx for concerta 27mg and ritalin 5mg - not taking them at this time. No longer seeing her psychiatrist at [facility] - would like to transfer rx here since she has been stable for so long. Controlled substance contract reviewed and signed, Utox obtained. Will contact this office when she needs refill as long as Utox negative. Follow up 6 months for med check Assessment & Plan (06/11/2020 11:31 AM EDT): Doing well on concerta 27mg and ritalin 5mg as needed, these are helpful for school and work - prescribed by psychiatry Sleeping well, appetite wnl. Assessment & Plan (09/10/2019 9:26 AM EDT): Continues with concerta 27mg daily, ritalin 5mg as needed prescribed by Dr. Isaac - feels dose working well, no issues with side effects Assessment & Plan (02/08/2019 4:32 PM EST): Rx for concerta 27mg, ritalin 5mg done [address] Dr. Isaac at [facility] Denies side effects, sleeping well, appetite wnl. Migraine, unspecified, not i ntractable, without status migrainosus 04/03/2015 Assessment & Plan (02/10/2021 10:04 AM EST): She had an episode last night;however, resolved after taking Imitrex. Recommended continuing current management. Assessment & Plan (02/08/2019 4:29 PM EST): Pt. With hx of migraines, not sure if has had aura. Utilizes sumatriptan as needed with good effect. Did get migraine with recent GI bug. Since ? Aura would recommend changing from combined OCP to progesterone only Pt. Interested in IUD - will go up to W after this appt. To schedule consult Resolved Problems Problem Noted Date Diagnosed Date Resolved Date Pelvic pain in female 08/24/20212023 Assessment & Plan (08/24/2021 10:32 AM EDT): Cultures done Discussed possible pain associated with deeper penetration and hitting cervix. Discussed position changes. Advised f/u if pain continues and will do pelvic US. F/u for overdue annual exam Chronic bilateral thoracic back pain 06/24/2021 05/27/2022 Assessment & Plan (06/24/2021 3:12 PM EDT): 20 yo F presenting with concern for chronic thoracic and low back pain midline over spine. Feels she has always had this and did not realize it is abnormal until recently. States she is never comfortable and always feels the need to crack her back. Reviewed since terminal gauger supervisor pain and the nature of her pain would recommend orthopedic eval. Reviewed they may recommend PT, which I think would be helpful, but due to the nature of her pain would prefer specialty eval. They can order imaging as well and then interpret that imaging if indicated. For now would recommend consistent stretching - provided PT stretches from the Patient Advisor Handbook. Referral placed to [facility] Discussed clinical v. Insurance referral. Pt. Is responsible for her own medical costs and so had questions regarding insurance and coverage Will keep this provider informed of how things are going and will call with questions PE scheduled in June. Lumbar pain 06/24/2021 05/27/2022 Assessment & Plan (07/24/2021 7:06 AM EDT): She was recently seen for chronic back pain and has been seeing Dr. Chase for that in Orthopaedics. She has an upcoming appointment with Dr. Chase on 07/26/21. Reports that she has scoliosis and has been going to [facility] since 07/12/21 with benefit. Currently, her back pain has improved. Continue current management. Hyperprolactinemia 06/14/2019 4 Assessment & Plan (02/10/2021 10:04 AM EST): Patient has hyperprolactinemia. Currently, on cabergoline 0.5 mg. Following up with the retail loss prevention officer. Recommended continuing current management. Vulvar pain 06/06/2019 08/06/2020 Assessment & Plan (06/06/2019 10:34 AM EDT): Discussed likely swollen lymph node due to recent sore. Advised to follow up if not resolved in 4 weeks or if sores recur. Galactorrhea 02/08/2019 02/09/2021 Assessment & Plan (08/06/2020 11:40 AM EDT): Pt. With hx of hyperprolactinemia - on cabergoline 0.5mg PO twice weekly. Sees Dr. Trejo for rx. Experiencing breast tenderness daily and states breasts are hard. Exam wnl today. Will repeat prolactin and testosterone as these have been elevated in the past, also TSH. Assessment & Plan (09/12/2019 10:10 AM EDT): Continue follow up with Videogame Tester as scheduled Continue Cabergoline as instructed Assessment & Plan (06/06/2019 10:38 AM EDT): Advised to follow up with endocrinology to notify improved but continued bilat nipple discharge with manipulation Will continue LoEstrin FE 04/15 for now. Folllow up 3 months. Pt accepts Assessment & Plan (04/25/2019 1:15 PM EST): Discussed possible causes of breast discharge. Will trial lowered OCP dose-LoEstrin FE 04/15. Discussed 3 month adjustment period. Pt sent for labs Will likely order breast ultrasound if continues. Educated patient on decreasing nipple stimulation and no intercourse/exercise/nipple stimulation for 24 hours prior to lab work. Urine icon negative Follow up 6 weeks. Assessment & Plan (02/08/2019 4:30 PM EST): Pt. Mentions at end of visit recent projectile nipple discharge - clear to milky with stimulation/palpation Will order labs today to evaluate Encounters Date Type Department Care Team Description 11/15/2024 Telephone [facility] [address] [place] [address] Pamela Avila MD has new PCP 10/04/2024 Transcribe Orders [facility] [address] [place] [address] [place] [address] Tahir Wilson Encounter for follow-up ultrasound of anatomy (Primary Dx) 10/01/2024 2:18 PM EDT - 10/01/2024 11:59 PM EDT Hospital Encounter [facility] [place], [facility] Ultrasound [address] [place] [address] Shani Terry CNM Discharge Disposition: Home or Self Care 09/13/2024 Transcribe Orders [facility] [address] [place] [address] Shani Terry CNM Encounter for anatomic survey (Primary Dx) 09/10/2024 Telephone [facility] [address] [place] [address] Unknown, Unknown, U/S Appointment from Last 3 Months Immunizations Immunization Administration Dates Next Due COVID-19 (Pre-01/16) Moderna Vaccine, mRNA, PF 06/06/2020,05/08/2020 COVID-19 Moderna Spikevax Vaccine + 07/09/2023 DTaP, unspecified formulation 06/28/2004 ,04/25/2000,09/03/1999,04/08,02/04/1999 [id number] FORMULATION 02/07/2009 HPV, unspecified formulation 08/14/2013,08/08/19 13,06/06/2012 Hepatitis A, ped/adol, 2 dose 11/13/2017, 017 Hepatitis B Adult 09/16/2019 Hepatitis B, unspecified formulation 06/02/1999, 04/08/1999,02/04/1999 Hib, unspecified formulation 01/10/2001, 04/25/2000,12/21/1999,06/01 Influenza Quadrivalent Adjuv anted Preservative Free IM 01/28/2022 Influenza Quadrivalent Prese rvative Free IM 12/26/2022,01/28/2022,12/21/2020,02/05,02/08/2019 Influenza Quadrivalent w/ Pr eservative IM 12/28/2023,02/03/2015 Influenza, Unspecified Formulation 04/12,02/10/2011,01/23/2010,12/22,01/13/2007,03/10/2005 MMR 06/28/2004,04/25/2000 Meningococcal ACWY, unspecif ied formulation 02/10/2011 Meningococcal MCV4P 11/11/2016 PPD Test 07/07/2023,09/16/2019,09/09/2019 Pneumococcal polysaccharide PPSV23 07/22/2020 Polio, Unspecified Formulation 5,09/03/1999,04/08/1999,02/04 Tdap 11/13/2017,11/16/2010 Varicella 05/06/2008,04/25/2000 Family History Medical History Relation Comments Allergic rhinitis Mother (IKS) Asthma Mother severe asthma (I [place]) Endometriosis Mother (IKS) Vascular disease Mother Nutcracker synd brendan Anxiety disorder Sister (IKS) Relation Status Comments Mother Sister Alive half sister (IKS ) Social History Tobacco Use Types Packs/Day Years Used Date Smoking Tobacco: Never Smokeless Tobacco: Never Tobacco Cessation:Counseling Given: Not Answered Alcohol Use Standard Drinks/Week Comments Yes 0 [...] Orientation Straight 11/15/2022 10 :36 AM EDT Last Filed Vital Signs Vital Sign Reading Time Taken Comments Blood Pressure 112/72 11/22/2023 1:01 PM EDT Pulse 82 11/22/2023 1:01 PM EDT Temperature 37 C (98.6 F) 03/16/2022 4:12 PM EST Respiratory Rate 14 03/16/2022 4:12 PM EST Oxygen Saturation 100% 11/22/2023 1:01 PM EDT Inhaled Oxygen Concentration - - Weight 89.4 kg (197 lb) 11/22/2023 1:01 PM EDT Height 160 cm (5' 3 ) 06/03/2020 8:52 AM EST Body Mass Index 34.9 06/03/2020 8:52 AM EST Plan of Treatment Upcoming Encounters Date Type Department Care Team (Late st Contact Info) Description 11/22/2024 9:40 AM EDT Appointment [facility] [place], OB Ultrasound [address] [place] [address] Shani Terry, [address] [address] mary alice @[email or web address] Health Maintenance Due Date Last Done Comments PNEUMOCOCCAL VACCINES (0-49 years) (2 of 2 - PCV) 07/22/2021 07/22/2020 PAP SMEAR 07/23/2023 07/22/2020, 07/22/2020 COVID-19 VACCINE ( season) 2023 07/09/2023, 03/31/2021, 06/06/2020, Additional history exists DEPRESSION SCREENING 07/06/2024 07/07/2023 SMOKING Hx and SMOKELESS TOBACCO SCREENING 11/21/2024 11/22/2023 Adult Td,Tdap Booster 11/14/2027 11/13/2017, 011 HIB VACCINES Completed 01/10/2001, 03/29, 12/21/1999, Additional history exists HPV VACCINES Completed 08/14/2013, 07/25, 06/06/2012 MENINGOCOCCAL VACCINES (ACWY) Completed 11/11/2016, 02/10/2011 HEPATITIS A VACCINES Completed 11/13/2017, 11/12/19 HEPATITIS C SCREENING Completed 07/22/2020 HIV ONE-TIME SCREENING (18-65 YEARS) Completed 07/22/2020 MENINGOCOCCAL VACCINES (B) Aged Out N o longer eligible based on patient's age to complete this topic Medical Devices Not on file Procedures Procedure Name Priority Date/Time Associated Diagnosis Comments US OB GREATER THAN OR EQUAL TO 14 WEEKS ANATOMICAL COMPLETE SURVEY Routine 10/01/2024 3:11 PM EDT Encounter for anatomic survey PAP TEST Routine 07/22/2020 8:35 PM EDT HEPATITIS C VIRUS ANTIBODY Routine 07/22/2020 12:31 PM EDT Encounter for general adult medical examination without abnormal findings Screen for STD (sexually transmitted disease) from Last 3 Months or Most Recently Relevant to Health Maintenance Results * US OB GREATER THAN OR EQUAL TO 14 WEEKS ANATOMICAL COMPLETE SURVEY (10/01/2024 3:11 PM EDT) Anatomical Region Laterality Modality Abdomen, Pelvis, Uterus/Adnexa U ltrasound 10/01/2024 3:12 PM EDT Impressions 10/03/2024 3:58 PM EDT This study is limited by position. The growth is normal. The anatomy visualized is unremarkable. The heart and diaphragm views are limited. Recommend follow-up for specific anatomy Narrative 10/03/2024 3:58 PM EDT Dictate modality (CT, fluoro, IR, MR, ultrasound, or X-Ray) or choose one from the pick list. Procedure: US OB GREATER THAN OR EQUAL TO 14 WEEKS ANATOMICAL COMPLETE SURVEY 10/01/2024 2:33 PM US Indications: Anatomic Survey. Comparison: No relevant recent comparisons. Maternal age: 23 years. Technique: Transabdominal scan was performed. Color Doppler and M-mode imaging was performed to assess vascularity. FINDINGS: number: 1 position: breech Placental position: posterior Placental Grade: 1 Placental appearance: Normal. Amniotic fluid assessment: wnl FHR: 158.0 bpm Estimated weight (EFW): 356.1 grams +/- 2 oz. 54% based on established TERA Hadlock. Ultrasound EGA: 20 weeks 4 day(s) Ultrasound TERA: [id number] Established TERA: [id number] Biometry: BPD: 4.73 cm, consistent with 20 weeks 3 day(s) and 50% Head Circumference: 18.23 cm, consistent with 20 weeks 5 day(s) and 58% Abdominal Circumference: 14.75 cm, consistent with 20 weeks 1 day(s) and 35% Femur Length: 3.48 cm, consistent with 21 weeks 0 day(s) and 66% Humerus: 3.39 cm, consistent with 21 weeks 4 day(s) and 84% Cerebellum: 2.06 cm, consistent with 20 weeks 6 day(s) Lat Vent: 0.80 cm Cist Ma.45 cm HC/AC: 1.24 FL/BPD: 0.74 FL/AC: 0.24 Documented anatomy: Head/Neck: Lateral ventricles - Seen Choroid plexus - Seen Midline falx - Seen Cavum septi pellucidi - Seen Cerebellum - Seen Cisterna magna - Seen Nuchal fold - Seen Face: Orbit/Lenses - Seen Upper lip - Seen Profile - Seen Chest: Four-chamber view - NOT Seen Left ventricular outflow tract - NOT Seen Right ventricular outflow tract -NOT Seen Aortic Arch - NOT Well Seen Ductal Arch - NOT Well Seen 3 Vessel View - Not Seen 3 VTV - Not Seen Abdomen: Stomach - Seen Diaphragm - Not Well Seen Kidneys - Seen Urinary bladder - Seen Abdominal cord insertion - Seen Three-vessel cord - Seen Placental Cord Insertion - Seen Limbs: Right arm and hand present - Seen Left arm and hand present - Seen Right leg and foot present - Seen Left leg and foot present - Seen Spine (in sagittal and transverse plane): Cervical - Seen Thoracic - Seen Lumbar - Seen Sacral - Seen Motion: Normal motion was observed. Cervix: 3.68 cm Uterine myometrium: Grossly normal Right ovary: Not visualized. Left ovary: Not visualized. Tech Comments: Strickland . EFW = 54%. anatomy as listed above appears grossly normal. Heart and diaphragm views limited by position. Active fetus. Normal fluid. Procedure Note Héctor Bright MD - 10/03/2024 Dictate modality (CT, fluoro, IR, MR, ultrasound, or X-Ray) or choose onefrom the pick list. Procedure: US OB GREATER THAN OR EQUAL TO 14 WEEKSANATOMICAL COMPLETE SURVEY 10/01/2024 2:33 PM US Indications: Anatomic Survey. Comparison: No relevant recent comparisons. Maternal age: 23 years. Technique: Transabdominal scan was performed. Color Doppler and M-modeimaging was performed to assess vascularity. FINDINGS: number: 1 position: breech Placental position: posterior Placental Grade: 1 Placental appearance: Normal. Amniotic fluid assessment: wnl FHR: 158.0 bpm Estimated weight (EFW): 356.1 grams +/- 2 oz. 54% based on established TERA Hadlock. Ultrasound EGA: 20 weeks 4 day(s) Ultrasound TERA: [id number] Established TERA: [id number] Biometry: BPD: 4.73 cm, consistent with 20 weeks 3 day(s) and 50% Head Circumference: 18.23 cm, consistent with 20 weeks 5 day(s) and 58% Abdominal Circumference: 14.75 cm, consistent with 20 weeks 1 day(s) and35% Femur Length: 3.48 cm, consistent with 21 weeks 0 day(s) and 66% Humerus: 3.39 cm, consistent with 21 weeks 4 day(s) and 84% Cerebellum: 2.06 cm, consistent with 20 weeks 6 day(s) Lat Vent: 0.80 cm Cist Ma.45 cm HC/AC: 1.24 FL/BPD: 0.74 FL/AC: 0.24 Documented anatomy: Head/Neck: Lateral ventricles - Seen Choroid plexus - Seen Midline falx - Seen Cavum septi pellucidi - Seen Cerebellum - Seen Cisterna magna - Seen Nuchal fold - Seen Face: Orbit/Lenses - Seen Upper lip - Seen Profile - Seen Chest: Four-chamber view - NOT Seen Left ventricular outflow tract - NOT Seen Right ventricular outflow tract -NOT Seen Aortic Arch - NOT Well Seen Ductal Arch - NOT Well Seen 3 Vessel View - Not Seen 3 VTV - Not Seen Abdomen: Stomach - Seen Diaphragm - Not Well Seen Kidneys - Seen Urinary bladder - Seen Abdominal cord insertion - Seen Three-vessel cord - Seen Placental Cord Insertion - Seen Limbs: Right arm and hand present - Seen Left arm and hand present - Seen Right leg and foot present - Seen Left leg and foot present - Seen Spine (in sagittal and transverse plane): Cervical - Seen Thoracic - Seen Lumbar - Seen Sacral - Seen Motion: Normal motion was observed. Cervix: 3.68 cm Uterine myometrium: Grossly normal Right ovary: Not visualized. Left ovary: Not visualized. Tech Comments: Strickland . EFW = 54%. anatomy as listed above appearsgrossly normal. Heart and diaphragm views limited by position.Active fetus. Normal fluid. IMPRESSION: This study is limited by position. The growth is normal. Theanatomy visualized is unremarkable. The heart and diaphragm views arelimited. Recommend follow-up for specific anatomy Shani Terry CN IMG US OBSTETRIC Final Res ult * Pap Smear (07/22/2020 8:35 PM EDT) 07/22/2020 8:35 PM EDT 07/22/2020 8:35 PM EDT [facility] - 08/16/2020 3:31 PM EDT MANAGER TALENT TRACT TP Pap w/ Reflex HPV, if ASCUS MANAGER TALENT Patient History SOURCE:Cervix HPV ORDERED? NO LMP:07/05/20 MICRO ORDERED? CT/GC Only PREV HX: TREATMENT HX:Oral Contraceptives Final Cytologic Diagnosis Specimen Adequacy: Satisfactory for Evaluation. Interpretation/Result: Negative for Intraepithelial Lesion/Malignancy. HPV Notation: HPV testing was not ordered. Liang Avila Signed Armin Gruber 08/16/20 1531 ----- ------- Liang Rodríguez CHIEF HOSPITAL ADMINISTRATOR CYTOLOGY ORDERABLES Final Result [facility] [address] [place] [address], [facility] [phone] * Hepatitis C Virus Antibody (07/22/2020 12:31 PM EDT) Hepatitis C Virus Antibody Non-React amber NonReactive [facility] 07/22/2020 12:3 1 PM EDT us Liang Rodríguez CHIEF HOSPITAL ADMINISTRATOR LAB BLOOD ORDERABLES Final Resul t Performing Organization Address [facility] Co de Phone Number [address] [address], [facility] [phone] from Last 3 Months or Most Recently Relevant to Health Maintenance Insurance [employer] Member Subscriber Plan / Payer (Ef fective 2023-Present) Name:Kimberly Qureshi Relation to Subscriber:Self Name:Kimberly Qureshi Payer ID:[id number] (NAIC) Type:PPO Address: [place] [id number] [employer] Member Subscriber Plan / Payer (Ef fective 2023-Present) Name:Kimberly Qureshi Relation to Subscriber:Self Name:Kimberly Qureshi Payer ID:[id number] (NAIC) Type:PPO Address: [address] Care Teams Behavioral Assistant Relationship Specialty Start Date End Date Liang Rodríguez NP [address] [facility] [place] [address] Historical LMR Provider 06/07/18 Pamela Avila MD [address] [facility] [place] [address] [email or web address] Historical LMR Provider 06/07/18 Tony Loomis MD [address] [place] [id number] [email or web address] Historical LMR Provider 06/07/18 Duglas Marino MD [address] [place] [address] [place] [address] Historical LMR Provider 06/07/18 Additional Source Comments The information contained in this document represents components of the legal health record. It is not the complete legal health record.[facility]
== END 2024-11-20 11:52 | disposition home or self-care (01) ==
LOC: HO.HMCH 11:03
DX: F41.9 Anxiety disorder, unspecified (principal); Z3A.17 17 weeks gestation of pregnancy; J45.21 Mild intermittent asthma with (acute) exacerbation; F90.9 Attention-deficit hyperactivity disorder, unspecified type